=== PATIENT | male | born 1985 | race Caucasian/White ===

== ENCOUNTER 2020-08-21 07:25 | Emergency (ER) | payer BC ==
[~2020-08-21] VITALS: Ht 180.3 cm; Wt 80.5 kg
[2020-08-21 07:36] VITALS: BP 134/80
[2020-08-21 07:59] LABS: CLARITY,URINE CLEAR (Clear); COLOR,URINE YELLOW (Yellow); GLUCOSE, URINE NEGATIVE (Neg); KETONES,URINE NEGATIVE (Neg); LEUKOCYTE ESTERASE ,URINE NEGATIVE (Neg); NITRITES, URINE NEGATIVE (Neg); OCCULT BLOOD,URINE NEGATIVE (Neg); PROTEIN,URINE NEGATIVE (Neg)
[2020-08-21 08:03] LABS: UA COLLECTION TYPE CLN CATCH MIDSTREAM
[2020-08-21] MEDS ORDERED: CefTRIAXone 250MG IM Kit w/LIDOcaine IM ONE (08:35)
[2020-08-21] MEDS ORDERED: azithromycin 250mg tablet PO ONE (08:35)
[2020-08-21] MEDS ORDERED: penicillin G benzathine 1.2 million unit/2ml syringe IM ONE (08:35)
[2020-08-21] MEDS ORDERED: VALA100031 PO (08:50)
== END 2020-08-21 09:28 | disposition home or self-care (01) ==
LOC: ER 07:25
DX: N48.9 Disorder of penis, unspecified (principal); B00.9 Herpesviral infection, unspecified; F17.210 Nicotine dependence, cigarettes, uncomplicated
CPT/HCPCS: 36415; 81003; 86592; 87491; 87591; 96372; 99284; J0561; J0696